=== PATIENT | male | born 1980 | race Caucasian/White ===

== ENCOUNTER 2024-12-28 03:27 | Emergency (ER) | payer BC, OTHER ==
[2024-12-28] MEDS ORDERED: Naloxone 0.4 MG/ML SDV IVPUSH PRN (04:03)
[2024-12-28 04:04] LABS: BASOPHILS ABSOLUTE AUTO 0.0 K/mm3 (0.0-0.2); BASOPHILS PERCENT AUTO 0.3 % (0.0-1.0); EOSINOPHILS ABSOLUTE AUTO 0.1 K/mm3 (0.0-0.4); EOSINOPHILS PERCENT AUTO 1.4 % (0.0-6.0); IMMATURE GRAN ABSOLUTE AUTO 0.04 K/mm3 (0.00-0.05); IMMATURE GRAN PERCENT AUTO 0.4 % (0.0-0.4); LYMPHOCYTES ABSOLUTE AUTO 1.5 K/mm3 (1.0-4.8); LYMPHOCYTES PERCENT AUTO 15.0 % (24.0-44.0); MEAN PLATELET VOLUME 9.9 fl (9.4-12.4); MONOCYTES ABSOLUTE AUTO 0.7 K/mm3 (0.0-0.8); MONOCYTES PERCENT AUTO 6.7 % (0.0-8.0); NEUTROPHILS ABSOLUTE AUTO 7.4 K/mm3 (1.8-7.7); NEUTROPHILS PERCENT AUTO 76.2 % (41.0-71.0); NRBC ABSOLUTE 0.00 (0.00-0.02); NRBC PERCENT 0.0 % (0.0-0.2); PLATELET COUNT,PLT 196 K/mm3 (150-400); RED BLOOD CELL COUNT 5.08 M/mm3 (4.52-5.90); WHITE BLOOD CELL COUNT,WBC 9.73 K/mm3 (3.9-11.3)
[2024-12-28 04:07] LABS: A/G RATIO 1.1 (1-2); ALANINE AMINOTRANSFERASE,ALT 32.0 U/L (16-63); ASPARTATE AMNIOTRANSFERASE,AST 19.0 U/L (15-37); BILIRUBIN TOTAL 0.3 mg/dL (0.2-1.0); BLOOD UREA NITROGEN,BUN 18.0 mg/dL (7-18); CARBON DIOXIDE,CO2 30.0 mEq/L (21-32); CHLORIDE,CL 104.0 mEq/L (98-107); CREATININE 1.6 mg/dL (0.7-1.3); EST CRCL DRUG DOSING (CG) 65.2 mL/min; ESTIMATED GFR 53.0 mL/min (>60); GLUCOSE RANDOM 115.0 mg/dL (70-99); POTASSIUM,K 4.9 mEq/L (3.5-5.1); PROTEIN TOTAL,TP 7.2 g/dl (6.4-8.2); SODIUM,NA 142.0 mEq/L (136-145)
[2024-12-28] MEDS ORDERED: Sodium Chloride 0.9% 10 ML Syringe FLUSH PRN (04:40)
[2024-12-28] MEDS: Iopamidol 612 MG/ML 100 ML Bottle IVPUSH ONE (06:28)
[2024-12-28 06:44] LABS: APPEARANCE,URINE CLEAR (Clear); GLUCOSE,URINE NEGATIVE (Negative); OCCULT BLOOD,URINE NEGATIVE (Negative)
== END 2024-12-28 09:19 | disposition home or self-care (01) ==
LOC: JD.ED 03:27
DX: K80.70 Calculus of gallbladder and bile duct without cholecystitis without obstruction (principal)
CPT/HCPCS: 36415; 74177; 76705; 80053; 81003; 83690; 84484; 85025; 93005; 96361; 96374; 96376; 99284; J1171; J7030; Q9967; 93010

== ENCOUNTER 2025-01-04 08:36 | Observation (INO) | payer BC ==
[2025-01-04 09:21] LABS: BASOPHILS ABSOLUTE AUTO 0.0 K/mm3 (0.0-0.2); BASOPHILS PERCENT AUTO 0.2 % (0.0-1.0); EOSINOPHILS ABSOLUTE AUTO 0.1 K/mm3 (0.0-0.4); EOSINOPHILS PERCENT AUTO 0.5 % (0.0-6.0); IMMATURE GRAN ABSOLUTE AUTO 0.03 K/mm3 (0.00-0.05); IMMATURE GRAN PERCENT AUTO 0.3 % (0.0-0.4); LYMPHOCYTES ABSOLUTE AUTO 1.2 K/mm3 (1.0-4.8); LYMPHOCYTES PERCENT AUTO 13.0 % (24.0-44.0); MEAN PLATELET VOLUME 9.4 fl (9.4-12.4); MONOCYTES ABSOLUTE AUTO 0.6 K/mm3 (0.0-0.8); MONOCYTES PERCENT AUTO 6.5 % (0.0-8.0); NEUTROPHILS ABSOLUTE AUTO 7.5 K/mm3 (1.8-7.7); NEUTROPHILS PERCENT AUTO 79.5 % (41.0-71.0); NRBC ABSOLUTE 0.00 (0.00-0.02); NRBC PERCENT 0.0 % (0.0-0.2); PLATELET COUNT,PLT 183 K/mm3 (150-400); RED BLOOD CELL COUNT 5.13 M/mm3 (4.52-5.90); WHITE BLOOD CELL COUNT,WBC 9.47 K/mm3 (3.9-11.3)
[2025-01-04] MEDS: fentaNYL 100 MCG/2 ML SDV IVPUSH ONE ×2 (09:29→10:13)
[2025-01-04] MEDS: Ondansetron 4 MG/2 ML SDV IVPUSH ONE (09:30)
[2025-01-04 10:08] LABS: A/G RATIO 1.3 (1-2); ALANINE AMINOTRANSFERASE,ALT 28.0 U/L (16-63); ASPARTATE AMNIOTRANSFERASE,AST 19.0 U/L (15-37); BILIRUBIN TOTAL 0.5 mg/dL (0.2-1.0); BLOOD UREA NITROGEN,BUN 14.0 mg/dL (7-18); CARBON DIOXIDE,CO2 21.0 mEq/L (21-32); CHLORIDE,CL 105.0 mEq/L (98-107); CREATININE 1.2 mg/dL (0.7-1.3); EST CRCL DRUG DOSING (CG) 86.93 mL/min; ESTIMATED GFR 76.0 mL/min (>60); GLUCOSE RANDOM 97.0 mg/dL (70-99); POTASSIUM,K 4.3 mEq/L (3.5-5.1); PROTEIN TOTAL,TP 7.0 g/dl (6.4-8.2); SODIUM,NA 140.0 mEq/L (136-145)
[2025-01-04] MEDS ORDERED: propofoL 500 MG/50 ML 50 ML ONE ×2 (11:13→12:19)
[2025-01-04] MEDS ORDERED: fentaNYL 250 MCG/5 ML SDV ONE (11:21)
[2025-01-04] MEDS ORDERED: dexmedeTOMIDine HCl 200 MCG/2 ML SDV ONE (11:23)
[2025-01-04] MEDS ORDERED: Ketorolac 30 MG/ML SDV ONE (11:23)
[2025-01-04] MEDS ORDERED: Dexamethasone 4 MG/ML 5 ML MDV ONE (11:23)
[2025-01-04] MEDS ORDERED: Ondansetron 4 MG/2 ML SDV ONE (11:23)
[2025-01-04] MEDS ORDERED: Propofol 200 MG/20 ML SDV ONE (11:43)
[2025-01-04] MEDS ORDERED: Lactated Ringers 1,000 ML ONE ×2 (12:15→12:38)
[2025-01-04] MEDS: cefOXitin 2 GM in Water For Injection, Sterile 20 ML IVPUSH ONE (12:21)
[2025-01-04] MEDS ORDERED: Iopamidol 612 MG/ML 30 ML SDV ONE (12:24)
[2025-01-04] MEDS ORDERED: Sodium Chloride 0.9% 50 ML SDV ONE (12:24)
[2025-01-04] MEDS: Heparin Sodium 5,000 Units/ML Vial SUBCUT ONE (12:28)
[2025-01-04] MEDS ORDERED: Labetalol 100 MG/20 ML MDV ONE (12:28)
[2025-01-04] MEDS ORDERED: fentaNYL 100 MCG/2 ML SDV ONE (12:35)
[2025-01-04] MEDS ORDERED: Lactated Ringers 1,000 ML IV SCH (14:15)
[2025-01-04] MEDS: fentaNYL 100 MCG/2 ML SDV IVPUSH PRN (15:00)
[2025-01-04] MEDS ORDERED: cefOXitin 2 GM in Water For Injection, Sterile 20 ML IVPUSH SCH (18:30)
[2025-01-04] MEDS: Ketorolac 30 MG/ML SDV IVPUSH SCH (18:43)
[2025-01-04] MEDS ORDERED: Heparin Sodium 5,000 Units/ML Vial SUBCUT SCH (20:30)
== END 2025-01-04 18:30 | disposition home or self-care (01) ==
LOC: JD.ED 08:36 → JD.MS 12:09
PROVIDERS: ADMIT Surgery; ATTEND Surgery
DX: K80.62 Calculus of gallbladder and bile duct with acute cholecystitis without obstruction (principal)
CPT/HCPCS: 36415; 47562; 71045; 76705; 80053; 83690; 84484; 85025; 86140; 93005; 96361; 96372; 96374; 96375; 96376; 99285; A4216; J0694; J1100; J1644; J1885; J1920; J2405; J2704; J3010; J7030; J7120; Q9967; 00790; 93010; J1171; J3490